=== PATIENT | female | born 1975 | race Caucasian/White ===

== ENCOUNTER 2017-05-11 10:01 | Emergency (ER) | payer OTHER ==
[~2017-05-11] VITALS: Ht 167.6 cm; Wt 122.5 kg
[~2017-05-11 10:01] MED LIST: ALBUTEROL2.5 MG/3 M IH; AMOX1TAB12 PO; CODE1TAB37 PO; DICLOFENAC SODI50 MG PO; FLONASE16 GM NS; FLOVENT HFA10.6 GM IH; GAS RELIEF125 M1 PO; GILTUSS TR TAB1 EACH PO; ORPH100T PO; Pulmicort 0.5 MG/2 ML AMPUL IH; SINGULAIR 10MG10 MG PO; SYNTHROID150 MCG PO; SYNTHROID200 MCG; TENORMIN50 M1; TENORMIN50 M1 PO; Tessalon 200MG PO; VASOTEC20 MG; ZYRTEC10 MG PO
== END 2017-05-11 19:13 | disposition home or self-care (01) ==
LOC: ER 10:01
DX: R10.84 Generalized abdominal pain (principal)

== ENCOUNTER 2017-05-16 14:36 | Outpatient (CLI) | payer OTHER | END 2017-05-16 14:37 | disposition home or self-care (01) | LOC: LAB 14:36 | DX: Z00.8 Encounter for other general examination (principal) ==

== ENCOUNTER 2017-06-07 13:40 | Outpatient (CLI) | payer OTHER | END 2017-06-07 14:00 | disposition home or self-care (01) | LOC: SONOGRAMA 13:40 | DX: N94.0 Mittelschmerz (principal); R10.2 Pelvic and perineal pain; N94.89 Other specified conditions associated with female genital organs and menstrual cycle ==

== ENCOUNTER → 2017-06-09 | Outpatient (CLI) | payer OTHER | END | disposition home or self-care (01) | LOC: PPHC 14:00 | DX: Z76.0 Encounter for issue of repeat prescription (principal) ==

== ENCOUNTER 2017-07-19 15:00 | Day surgery (SDC) | payer OTHER ==
[~2017-07-19] VITALS: Ht 157.5 cm; Wt 90.7 kg
[2017-07-19] MEDS ORDERED: MIRALAX17 GM PO (18:44)
[2017-07-19] MEDS ORDERED: NEURONTIN300 MG PO (18:44)
[2017-07-19] MEDS ORDERED: PERCOCET 5-3251 EACH PO (18:44)
== END 2017-07-19 21:00 | disposition home or self-care (01) ==
LOC: CIR.AMB 15:00 → OB/GYN 18:45 → O/R 18:45 → OB/GYN 19:16 → CIR.AMB 21:00
DX: N83.02 Follicular cyst of left ovary (principal); K43.0 Incisional hernia with obstruction, without gangrene; N83.292 Other ovarian cyst, left side; K66.0 Peritoneal adhesions (postprocedural) (postinfection)

== ENCOUNTER → 2017-07-30 | Emergency (ER) | payer OTHER ==
[~2017-07-30] VITALS: Ht 167.6 cm; Wt 124.7 kg
[~2017-07-30] MED LIST changes: +MIRALAX17 GM PO; +NEURONTIN300 MG PO; +PERCOCET 5-3251 EACH PO
== END | disposition home or self-care (01) ==
LOC: ER 16:24
DX: R10.32 Left lower quadrant pain (principal)

== ENCOUNTER → 2017-10-29 07:33 | Outpatient (CLI) | payer OTHER | END | disposition home or self-care (01) | LOC: LAB 07:33 | DX: E03.8 Other specified hypothyroidism (principal); I10 Essential (primary) hypertension ==

== ENCOUNTER 2018-01-10 23:06 | Emergency (ER) | payer OTHER ==
[~2018-01-10] VITALS: Ht 167.6 cm; Wt 117.9 kg
[2018-01-10] MEDS ORDERED: TENORMIN50 M1 (23:18)
== END 2018-01-11 00:20 | disposition home or self-care (01) ==
LOC: ER 23:06
DX: S13.4XXA Sprain of ligaments of cervical spine, initial encounter (principal); M62.830 Muscle spasm of back; X50.0XXA Overexertion from strenuous movement or load, initial encounter; Y93.89 Activity, other specified; Y92.89 Other specified places as the place of occurrence of the external cause; Y99.8 Other external cause status

== ENCOUNTER 2018-03-14 18:25 | Emergency (ER) | payer OTHER ==
[~2018-03-14] VITALS: Ht 167.6 cm; Wt 118.8 kg
== END 2018-03-15 00:25 | disposition home or self-care (01) ==
LOC: ER 18:25
DX: K29.70 Gastritis, unspecified, without bleeding (principal); E86.0 Dehydration

== ENCOUNTER 2018-04-26 23:08 | Emergency (ER) | payer OTHER ==
[~2018-04-26] VITALS: Ht 167.6 cm; Wt 120.2 kg
[2018-04-26] MEDS ORDERED: PREDNISONE20 MG PO (23:47)
== END 2018-04-27 02:18 | disposition home or self-care (01) ==
LOC: ER 23:08
DX: M72.2 Plantar fascial fibromatosis (principal)

== ENCOUNTER 2018-07-06 17:48 | Emergency (ER) | payer OTHER ==
[~2018-07-06] VITALS: Ht 157.5 cm; Wt 124.7 kg
[~2018-07-06 17:48] MED LIST changes: +PREDNISONE20 MG PO
== END 2018-07-07 00:11 | disposition home or self-care (01) ==
LOC: ER 17:48
DX: J45.998 Other asthma (principal)

== ENCOUNTER 2018-11-07 10:58 | Outpatient (CLI) | payer OTHER | END 2018-11-07 13:42 | disposition home or self-care (01) | LOC: LAB 10:58 | DX: Z00.00 Encounter for general adult medical examination without abnormal findings (principal); E55.9 Vitamin D deficiency, unspecified; E78.49 Other hyperlipidemia; R42 Dizziness and giddiness; I10 Essential (primary) hypertension ==

== ENCOUNTER 2018-12-22 08:14 | Emergency (ER) | payer OTHER ==
[~2018-12-22] VITALS: Ht 167.6 cm; Wt 122.5 kg
[2018-12-22] MEDS ORDERED: GLIMEPIRIDE4 MG (08:19)
[2018-12-22] MEDS ORDERED: METFORMIN HCL850 MG (08:19)
== END 2018-12-22 13:07 | disposition home or self-care (01) ==
LOC: ER 08:14
DX: R04.0 Epistaxis (principal)

== ENCOUNTER → 2018-12-25 | Emergency (ER) | payer OTHER ==
[~2018-12-25] VITALS: Ht 330.2 cm; Wt 126.1 kg
[~2018-12-25] MED LIST changes: +GLIMEPIRIDE4 MG; +METFORMIN HCL850 MG
== END | disposition home or self-care (01) ==
LOC: ER 11:45
DX: R07.89 Other chest pain (principal); F06.4 Anxiety disorder due to known physiological condition

== ENCOUNTER 2019-02-22 22:45 | Emergency (ER) | payer OTHER ==
[~2019-02-22] VITALS: Ht 167.6 cm; Wt 117.9 kg
== END 2019-02-23 01:31 | disposition home or self-care (01) ==
LOC: ER 22:45
DX: S13.4XXA Sprain of ligaments of cervical spine, initial encounter (principal); S20.221A Contusion of right back wall of thorax, initial encounter; V49.9XXA Car occupant (driver) (passenger) injured in unspecified traffic accident, initial encounter; Y93.89 Activity, other specified; Y92.488 Other paved roadways as the place of occurrence of the external cause; Y99.8 Other external cause status

== ENCOUNTER → 2019-03-03 07:10 | Outpatient (CLI) | payer OTHER | END | disposition home or self-care (01) | LOC: LAB 07:10 | DX: E11.65 Type 2 diabetes mellitus with hyperglycemia (principal); I10 Essential (primary) hypertension; Z00.00 Encounter for general adult medical examination without abnormal findings ==

== ENCOUNTER 2019-04-21 22:05 | Emergency (ER) | payer OTHER ==
[~2019-04-21] VITALS: Ht 152.4 cm; Wt 104.3 kg
[2019-04-22] MEDS ORDERED: XOPENEX0.63 MG/3 IH (02:25)
[2019-04-22] MEDS ORDERED: ZYNCOF 20-400120 ML PO (02:25)
== END 2019-04-22 02:36 ==
LOC: ER 22:05
DX: J20.9 Acute bronchitis, unspecified (principal); J11.1 Influenza due to unidentified influenza virus with other respiratory manifestations

== ENCOUNTER 2019-05-24 10:30 | Outpatient (CLI) | payer OTHER ==
[~2019-05-24 10:30] MED LIST changes: +XOPENEX0.63 MG/3 IH; +ZYNCOF 20-400120 ML PO
== END 2019-05-24 10:49 | disposition home or self-care (01) ==
LOC: LAB 10:30
DX: N18.2 Chronic kidney disease, stage 2 (mild) (principal); E11.21 Type 2 diabetes mellitus with diabetic nephropathy; R80.8 Other proteinuria

== ENCOUNTER 2019-05-25 08:04 | Outpatient (CLI) | payer OTHER | END 2019-05-25 08:17 | disposition home or self-care (01) | LOC: SONOGRAMA 08:04 → MAMO-SONO 08:15 → SONOGRAMA 08:17 | DX: N18.2 Chronic kidney disease, stage 2 (mild) (principal); E11.21 Type 2 diabetes mellitus with diabetic nephropathy; R80.8 Other proteinuria ==

== ENCOUNTER 2019-09-12 23:37 | Emergency (ER) | payer OTHER ==
[~2019-09-12] VITALS: Ht 167.6 cm; Wt 122.5 kg
== END 2019-09-13 00:41 | disposition home or self-care (01) ==
LOC: ER 23:37
DX: S80.01XA Contusion of right knee, initial encounter (principal); W50.0XXA Accidental hit or strike by another person, initial encounter; Y93.89 Activity, other specified; Y92.89 Other specified places as the place of occurrence of the external cause; Y99.8 Other external cause status

== ENCOUNTER 2019-11-05 23:09 | Emergency (ER) | payer OTHER ==
[~2019-11-05] VITALS: Ht 167.6 cm; Wt 117.9 kg
== END 2019-11-06 00:10 | disposition home or self-care (01) ==
LOC: ER 23:09
DX: M25.561 Pain in right knee (principal); G89.11 Acute pain due to trauma

== ENCOUNTER 2020-03-09 12:28 | Emergency (ER) | payer OTHER ==
[~2020-03-09] VITALS: Ht 167.6 cm; Wt 122.5 kg
[2020-03-09] MEDS ORDERED: VITAMIN C100 MG PO (13:05)
[2020-03-09] MEDS ORDERED: ADULT ASPIRIN81 MG PO (13:06)
[2020-03-09] MEDS ORDERED: ZINC50 M1 PO (13:06)
== END 2020-03-09 17:26 | disposition home or self-care (01) ==
LOC: ER 12:28
DX: R07.89 Other chest pain (principal); R16.0 Hepatomegaly, not elsewhere classified; K76.0 Fatty (change of) liver, not elsewhere classified; K42.9 Umbilical hernia without obstruction or gangrene; Z03.818 Encounter for observation for suspected exposure to other biological agents ruled out

== ENCOUNTER 2020-11-11 10:47 | Emergency (ER) | payer OTHER ==
[~2020-11-11] VITALS: Ht 167.6 cm; Wt 122.5 kg
[~2020-11-11 10:47] MED LIST changes: +ADULT ASPIRIN81 MG PO; +VITAMIN C100 MG PO; +ZINC50 M1 PO
[2020-11-11] MEDS ORDERED: BENZONATATE200 M1 PO (14:42)
[2020-11-11] MEDS ORDERED: PROAIR RESPICL90 MCG IH (14:42)
== END 2020-11-11 14:53 | disposition home or self-care (01) ==
LOC: ER 10:47
DX: J45.901 Unspecified asthma with (acute) exacerbation (principal); Z03.818 Encounter for observation for suspected exposure to other biological agents ruled out; R53.81 Other malaise

== ENCOUNTER 2022-08-10 09:54 | Emergency (ER) | payer OTHER ==
[~2022-08-10] VITALS: Ht 167.6 cm; Wt 120.2 kg
[~2022-08-10 09:54] MED LIST changes: +BENZONATATE200 M1 PO; +PROAIR RESPICL90 MCG IH
[2022-08-10] MEDS ORDERED: VASOTEC2.5 MG (10:15)
[2022-08-10] MEDS ORDERED: ORPHENADRI30 MG/1 M1 IM (12:14)
[2022-08-10] MEDS ORDERED: TORADOL60 MG IM (12:14)
== END 2022-08-10 12:30 | disposition home or self-care (01) ==
LOC: ER 09:54
DX: M50.323 Other cervical disc degeneration at C6-C7 level (principal); E11.9 Type 2 diabetes mellitus without complications; Z79.84 Long term (current) use of oral hypoglycemic drugs; E03.9 Hypothyroidism, unspecified; I10 Essential (primary) hypertension; E78.00 Pure hypercholesterolemia, unspecified; Z88.8 Allergy status to other drugs, medicaments and biological substances

== ENCOUNTER 2022-11-21 07:22 | Outpatient (CLI) | payer OTHER ==
[~2022-11-21 07:22] MED LIST changes: +ORPHENADRI30 MG/1 M1 IM; +TORADOL60 MG IM; +VASOTEC2.5 MG
== END 2022-11-21 07:28 | disposition home or self-care (01) ==
LOC: LAB 07:22
PROVIDERS: ATTEND Internal Medicine
DX: N18.1 Chronic kidney disease, stage 1 (principal); R80.9 Proteinuria, unspecified; E78.9 Disorder of lipoprotein metabolism, unspecified; I11.9 Hypertensive heart disease without heart failure; E11.9 Type 2 diabetes mellitus without complications; E03.9 Hypothyroidism, unspecified; Z88.6 Allergy status to analgesic agent; Z88.8 Allergy status to other drugs, medicaments and biological substances

== ENCOUNTER 2022-11-21 08:14 | Outpatient (CLI) | payer OTHER | END 2022-11-21 08:20 | disposition home or self-care (01) | LOC: MAMO-SONO 08:14 | PROVIDERS: ATTEND Internal Medicine | DX: Z12.39 Encounter for other screening for malignant neoplasm of breast (principal); N60.29 Fibroadenosis of unspecified breast; Z12.31 Encounter for screening mammogram for malignant neoplasm of breast ==

== ENCOUNTER 2023-01-26 08:21 | Emergency (ER) | payer OTHER ==
[~2023-01-26] VITALS: Ht 167.6 cm; Wt 117.9 kg
[2023-01-26] MEDS ORDERED: METFORMIN HCL1000 M3 PO (08:54)
[2023-01-26] MEDS ORDERED: FARXIGA10 MG PO (08:54)
[2023-01-26 09:48] LABS: HEMATOCRIT 39.4 % (36.0-45.00); MEAN CELL VOLUME 82.7 fL (80.00-100.00); MEAN CORPUSCULAR HEMOGLOBIN 27.3 pg (27.00-32.0); PLATELET COUNT 288 K/uL (150-450); RED BLOOD COUNT 4.77 M/uL (4.00-6.00); RED CELL DISTRIBUTION WIDTH 14.8 % (11.5-14.5)
== END 2023-01-26 11:01 | disposition home or self-care (01) ==
LOC: ER 08:21
DX: J06.9 Acute upper respiratory infection, unspecified (principal); Z20.822 Contact with and (suspected) exposure to COVID-19

== ENCOUNTER 2023-02-19 10:52 | Emergency (ER) | payer OTHER ==
[~2023-02-19] VITALS: Ht 170.2 cm; Wt 136.1 kg
[~2023-02-19 10:52] MED LIST changes: +FARXIGA10 MG PO; +METFORMIN HCL1000 M3 PO
[2023-02-19] MEDS ORDERED: LIPITOR20 MG PO (10:58)
== END 2023-02-19 13:46 | disposition home or self-care (01) ==
LOC: ER 10:52
DX: M54.50 Low back pain, unspecified (principal); I10 Essential (primary) hypertension; E11.9 Type 2 diabetes mellitus without complications; Z79.84 Long term (current) use of oral hypoglycemic drugs; Z88.6 Allergy status to analgesic agent; Z88.8 Allergy status to other drugs, medicaments and biological substances

== ENCOUNTER 2023-05-14 17:26 | Emergency (ER) | payer OTHER ==
[~2023-05-14] VITALS: Ht 167.6 cm; Wt 122.5 kg
[~2023-05-14 17:26] MED LIST changes: +LIPITOR20 MG PO
[2023-05-14] MEDS ORDERED: ORPHENADRINE CITRATE 30 MG/ML AMPUL IM ONE (18:45)
[2023-05-14] MEDS ORDERED: KETOROLAC TROMETHAMINE 60 MG VIAL IM ONE (18:45)
== END 2023-05-14 22:46 | disposition home or self-care (01) ==
LOC: ER 17:26
DX: M54.2 Cervicalgia (principal); I10 Essential (primary) hypertension; E11.9 Type 2 diabetes mellitus without complications; Z79.84 Long term (current) use of oral hypoglycemic drugs; Z88.6 Allergy status to analgesic agent; Z88.8 Allergy status to other drugs, medicaments and biological substances

== ENCOUNTER 2023-07-07 16:05 | Emergency (ER) | payer OTHER ==
[~2023-07-07] VITALS: Ht 167.6 cm; Wt 127.0 kg
[2023-07-07 18:43] LABS: HEMATOCRIT 41.5 % (36.0-45.00); HEMOGLOBIN 13.3 g/dL (12.0-15.00); MEAN CELL VOLUME 82.5 fL (80.00-100.00); MEAN CORPUSCULAR HEMOGLOBIN 26.4 pg (27.00-32.0); PLATELET COUNT 307 K/uL (150-450); RED BLOOD COUNT 5.03 M/uL (4.00-6.00); RED CELL DISTRIBUTION WIDTH 15.1 % (11.5-14.5)
[2023-07-07 18:54] LABS: CALCIUM 9.8 mg/dL (8.5-10.1); CREATININE SERUM 1.28 mg/dL (0.55-1.02); GFR 44.32; POTASSIUM 4.24 mEq/L (3.5-5.1)
== END 2023-07-07 20:45 | disposition home or self-care (01) ==
LOC: ER 16:05
PROVIDERS: General Practice
DX: R51.9 Headache, unspecified (principal); Z88.5 Allergy status to narcotic agent; Z88.8 Allergy status to other drugs, medicaments and biological substances

== ENCOUNTER 2023-07-17 18:07 | Emergency (ER) | payer OTHER ==
[~2023-07-17] VITALS: Ht 152.4 cm; Wt 122.5 kg
[2023-07-17 19:23] LABS: HEMATOCRIT 42.5 % (36.0-45.00); HEMOGLOBIN 13.9 g/dL (12.0-15.00); MEAN CELL VOLUME 82.5 fL (80.00-100.00); MEAN CORPUSCULAR HGB CONC 32.8 g/dl (32.0-36.0); PLATELET COUNT 294 K/uL (150-450); RED BLOOD COUNT 5.15 M/uL (4.00-6.00); RED CELL DISTRIBUTION WIDTH 15.2 % (11.5-14.5)
[2023-07-17 19:40] LABS: CALCIUM 9.5 mg/dL (8.5-10.1); CREATININE SERUM 1.56 mg/dL (0.55-1.02); GFR 35.27; POTASSIUM 4.36 mEq/L (3.5-5.1)
[2023-07-17 19:42] LABS: INR 0.95; PARTIAL THROMBOPLASTIN TIME 27.6 SECONDS (22.0-34.0)
[2023-07-17 19:58] LABS: URINE APPEARANCE Turbid; URINE BILIRRUBIN Negative (NEGATIVE); URINE BLOOD Negative; URINE COLOR Yellow; URINE GLUCOSE Negative (NEGATIVE); URINE LEUKOCYTE Trace; URINE NITRATE Negative; URINE PROTEIN >=1000 (NEGATIVE)
[2023-07-17 19:59] LABS: URINE BACTERIA 692.9 uL (0.0-1933); URINE EPITHELIAL CELLS 20.5 uL (0.0-38.8); URINE RBC 725.4 uL (0.0-20.8); URINE WBC 11.1 uL (0.0-23.2)
[2023-07-17] MEDS ORDERED: 0.9 % SODIUM CHLORIDE 1,000 ML IV ONE (20:15)
== END 2023-07-17 20:49 | disposition home or self-care (01) ==
LOC: ER 18:07
PROVIDERS: General Practice
DX: R29.898 Other symptoms and signs involving the musculoskeletal system (principal); R53.1 Weakness; Z88.8 Allergy status to other drugs, medicaments and biological substances; M50.322 Other cervical disc degeneration at C5-C6 level

== ENCOUNTER 2023-10-29 01:09 | Emergency (ER) | payer OTHER ==
[~2023-10-29] VITALS: Ht 170.2 cm; Wt 131.5 kg
[~2023-10-29 01:09] MED LIST changes: +PLAVIX75 MG PO
[2023-10-29 02:32] LABS: HEMOGLOBIN 13.3 g/dL (12.0-15.00); MEAN CORPUSCULAR HEMOGLOBIN 27.5 pg (27.00-32.0); MEAN CORPUSCULAR HGB CONC 32.4 g/dl (32.0-36.0); PLATELET COUNT 274 K/uL (150-450); RED BLOOD COUNT 4.82 M/uL (4.00-6.00); RED CELL DISTRIBUTION WIDTH 14.5 % (11.5-14.5)
== END 2023-10-29 03:07 | disposition home or self-care (01) ==
LOC: ER 01:10
DX: R20.0 Anesthesia of skin (principal); E11.9 Type 2 diabetes mellitus without complications; Z79.84 Long term (current) use of oral hypoglycemic drugs; Z88.8 Allergy status to other drugs, medicaments and biological substances; Z20.822 Contact with and (suspected) exposure to COVID-19